=== PATIENT | male | born 1975 | race Caucasian/White ===

== ENCOUNTER → 2017-06-29 11:19 | Emergency (ER) | payer BC ==
[~2017-06-29 11:19] MED LIST: Morphine INJ* 2 MG/ML 1 ML SYRINGE IV ONE
--- NOTE | 2017-06-29 11:57 | ED ---
Abdominal Pain/Male - HPI Summary HPI Summary: Patient is a otherwise healthy 42yo M who presents to the ED with CC of LLQ x 1.5 hours which is intermittent, 8/10 and stabbing. Hx of kidney stones 4 years ago and feels the same. Endorses what he thought was "back spasms" but only had LLQ pain upon last dx of kidney stones. 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 Subramanian. He has been taking OTC large amounts of glucosamine, which he also did last time when he experienced kidney stones. Denies N/V. Pain is better with movement and worse with rest. Denies any urinary symptoms including burning, frequency, urgency or symptoms of obstruction. Denies any fevers, sweats or chills. - History of Current Complaint Chief Complaint: EDAbdPain Stated Complaint: LT SIDED ABD PAIN Time Seen by Provider: 06/29/17 11:40 Hx Obtained From: Patient Onset/Duration: Sudden Onset Timing: Constant Severity Initially: Moderate Severity Currently: Moderate Pain Intensity: 5 Pain Scale Used: 0-10 Numeric Location: Discrete At: LLQ Radiates: No Character: Sharp, Cramping Aggravating Factor(s): Nothing Alleviating Factor(s): Position Associated Signs And Symptoms: Positive: Negative - Risk Factors Testicular Torsion: Negative Cardiac Risk Factors: Negative - Allergies/Home Medications Allergies/Adverse Reactions: Allergies Allergy/AdvReac Type Severity Reaction Status Date / Time No Known Allergies Allergy Verified 06/29/17 11:25 PMH/Surg Hx/FS Hx/Imm Hx Previously Healthy: Yes Endocrine/Hematology History: Denies: Hx Diabetes Cardiovascular History: Reports: Hx Hypercholesterolemia Denies: Hx Hypertension, Hx Pacemaker/ICD Respiratory History: Reports: Hx Seasonal Allergies, Hx Sleep Apnea - current CPAP user History: Reports: Hx Kidney Stones Denies: Hx Renal Disease Musculoskeletal History: Reports: Hx Back Problems Sensory History: Reports: Hx Contacts or Glasses Denies: Hx Hearing Aid Opthamlomology History: Reports: Hx Contacts or Glasses Psychiatric History: Denies: Hx Panic Disorder - Surgical History Surgery Procedure, Year, and Place: [facility] - Immunization History Hx Pertussis Vaccination: No Immunizations Up to Date: Unable to Obtain/Confirm Infectious Disease History: No Infectious Disease History: Denies: Traveled Outside the [place] in Last 30 Days - Family History Known Family History: Positive: Unknown, Other - FATHER - GOUT - Social History Occupation: Employed Full-time Lives: With Family Alcohol Use: Weekly Alcohol Amount: 2 drinks weekly per pt Hx Substance Use: No Substance Use Type: Reports: None Hx Tobacco Use: Yes Smoking Status (MU): Former Smoker Review of Systems Constitutional: Negative Eyes: Negative Cardiovascular: Negative Respiratory: Negative Positive: Abdominal Pain - LLQ pain Positive: no symptoms reported, see HPI Musculoskeletal: Negative Skin: Negative Psychological: Normal All Other Systems Reviewed And Are Negative: Yes Physical Exam Triage Information Reviewed: Yes Vital Signs On Initial Exam: Initial Vitals Temp Pulse Resp BP Pulse Ox 96 F 63 16 137/88 99 06/29/17 11:25 06/29/17 11:25 06/29/17 11:25 06/29/17 11:25 06/29/17 11:25 Vital Signs Reviewed: Yes Appearance: Positive: Well-Appearing, Well-Nourished Skin: Positive: Warm, Skin Color Reflects Adequate Perfusion Head/Face: Positive: Normal Head/Face Inspection Eyes: Positive: EOMI, BRENDAN, Conjunctiva Clear Neck: Positive: Supple, Nontender, No Lymphadenopathy Respiratory/Lung Sounds: Positive: Clear to Auscultation, Breath Sounds Present Cardiovascular: Positive: Normal, RRR, Pulses are Symmetrical in both Upper and Lower Extremities Abdomen Description: Positive: Nontender, Soft, Other: - tenderness on deep palpation of the LLQ Musculoskeletal: Positive: Normal, Strength/ROM Intact Neurological: Positive: Sensory/Motor Intact, Alert, Oriented to Person Place, Time, Speech Normal Psychiatric: Positive: Normal - Valentino Coma Scale Coma Scale Total: 15 Diagnostics - Vital Signs Vital Signs Temp Pulse Resp BP Pulse Ox 06/29/17 11:39 96.0 F 63 16 137/88 99 06/29/17 11:25 96 F 63 16 137/88 99 - Laboratory Result Diagrams: 06/29/17 12:08 06/29/17 12:08 Lab Statement: Any lab studies that have been ordered have been reviewed, and results considered in the medical decision making process. Abdominal Pain Fem Course/Dx - Course Course Of Treatment: Patient presents to ED with left sided lower quadrant pain with CC and history of kidney stones. Patient notes to previous kidney stones which he never experienced flank pain associated. He has had 2mg morphine with effect. IMPRESSION: 1. There is mild left-sided hydronephrosis with a 3 mm calcification identified in the. distal left ureter. 2. Additional chronic and degenerative changes described in body the report. Treatment options explained. D/t 3mm stone - patient given tamsulosin .4 at bedtime, pain medications and encouraged to strain urine. During course of treatment, he is given 2mg morphine prior to discharge. - Diagnoses Differential Diagnosis/HQI/PQRI: Renal Colic, Ureteral Stone, Urinary Tract Infection Provider Diagnoses: Kidney stone on left side Discharge - Discharge Plan Condition: Stable Disposition: HOME Prescriptions: Tamsulosin CAP* [Flomax CAP*] 0.4 mg PO BEDTIME #10 cap MDD 1 oxyCODONE/Acetamin 10/325(NF) [Percocet 10/325 (NF)] 1 tab PO TID PRN #9 tab MDD 3 PRN Reason: Pain Patient Education Materials: Kidney Stones (ED), How to Strain Your Urine (ED) Referrals: Kana Subramanian MD [Primary Care Provider] - Juan Mejias MD [Medical Doctor] - David Navas MD [Medical Doctor] - Additional Instructions: Take 1 (.4) mg Tamsulosin tab at bedtime until known passage of stone or symptoms resolve Follow up with urology as needed for any worsening sxs or pain Percoset three times daily only as needed for pain
[2017-06-29 12:20] LABS: Hematocrit 44 % (42-52); Hemoglobin 15.1 g/dl (14.0-18.0); Mean Corpuscular HGB Conc 34 g/dl (31-36); Mean Corpuscular Hemoglobin 28 pg (27-31); Mean Corpuscular Volume 82 fL (80-94); Mean Platelet Volume 7 um3 (7.4-10.4); Red Blood Count 5.37 10^6/ul (4.0-5.4); Red Cell Distribution Width 17 % (10.5-15); White Blood Count 4.6 10^3/ul (3.5-10.8)
--- NOTE | 2017-06-29 12:29 | RAD ---
CLINICAL HISTORY: Left lower quadrant pain COMPARISON: None TECHNIQUE: Noncontrast CT examination of the abdomen and pelvis from the lung bases through the initial tuberosities. FINDINGS: VISUALIZED LUNG BASES: The visualized lung bases are grossly clear. There is no pleural effusion. ABDOMEN AND PELVIS: Evaluation of the solid organs and vasculature is limited without intravenous contrast. The liver, spleen, pancreas and adrenal glands are grossly normal in appearance. The gallbladder is normal. The right kidney is normal in appearance without focal mass, calcification or signs of hydronephrosis. There is a mild degree of left-sided hydronephrosis. The distal left ureter (image 156) there is a 3 mm calcification. Evaluation of the gastrointestinal tract is limited without oral contrast. The small and large bowel are not distended.The patient's normal appendix is identified in the right lower quadrant measuring 5 mm in diameter (coronal image 42).. There is no gross retroperitoneal or mesenteric lymphadenopathy. The pelvic viscera is normal in appearance. There is a small left-sided fat-containing hernia. The very mildly calcified abdominal aorta and iliac arteries are normal in course and diameter. Degenerative changes include multilevel loss of intervertebral disc height involving the lower thoracic and lumbar spine most severely affecting L5/S1 where there is vacuum disc phenomenon.There are no sinister bone lesions. IMPRESSION: 1. There is mild left-sided hydronephrosis with a 3 mm calcification identified in the distal left ureter. 2. Additional chronic and degenerative changes described in body the report.
[2017-06-29 12:35] LABS: Albumin 4.5 g/dL (3.2-5.2); C Reactive Protein 2.37 mg/L (< 5.00); Total Bilirubin 0.7 mg/dL (0.2-1.0)
[2017-06-29 12:41] LABS: BUN/Creatinine Ratio 12.3 (8-20); Calcium 9.6 mg/dL (8.6-10.3); EGFR African American 90.2 (>60); EGFR Non-African American 70.1 (>60); Globulin 2.7 g/dL (2-4); Potassium 3.6 mmol/L (3.5-5.0); Total Protein 7.2 g/dL (6.4-8.9)
[2017-06-29 14:12] VITALS: BP 144/92
[2017-06-29 14:51] LABS: Urine Bacteria Absent (Absent); Urine Bilirubin Negative (Negative); Urine Glucose Negative (Negative); Urine Nitrite Negative (Negative)
== END | disposition home or self-care (01) ==
LOC: ED 11:19
DX: N20.0 Calculus of kidney (principal); R10.32 Left lower quadrant pain; Z87.891 Personal history of nicotine dependence
CPT/HCPCS: 36415; 74176; 80053; 81003; 81015; 82550; 83605; 83690; 85025; 86140; 96374; 96375; 99282; J2270